=== PATIENT | male | born 1950 | race African-American/Black ===

== ENCOUNTER 2019-06-01 10:27 | Emergency (ER) | payer OTHER ==
[2019-06-01 10:34] VITALS: BP 156/86; PULSE 81; TEMP 97.7; BMI 27.5
--- NOTE | 2019-06-01 11:06 | PDOC ---
History of Present Illness - General Chief Complaint: Respiratory Stated Complaint: COUGH,CONGESTION,LIGHTHEADEDNESS Time Seen by Provider: 06/01/19 10:33 History Source: Patient Exam Limitations: No Limitations - History of Present Illness Initial Comments: 06/01/19 10:41 HPI 69 YOM with h/o arthritis presenting with persistent cough and congestion x 2 weeks. he was initially seen at urgent care for cough/congestion about 1 week ago, dx'd with flu like illness and rx'd tamiflu/anti-nausea medication. he initially improved, and now over the past 1 week started having dry cough, dry mouth when he wakes up in the morning and nasal congestion. associated with dizziness, worse with moving about and removing his eyeglasses today. Denies fever, chills, chest pain, SOB, palpitation, dizziness, weakness, N, V, D , abdominal pain, bladder and bowel problems, focal weakness/paresthesias, leg swelling/pain, rash. No sick contacts. recently returned from visiting family over the frances holidays in [place]. tolerating oral and fluid intake. Allergies: None Past Medical History: arthritis PSH: cholecystectomy Social history: Lives with family. No tobacco, ETOH or drug use. Meds: none Review of systems Constitutional: no fevers or chills. No weakness HEENT: +nasal congestion. +dry mouth. +dizziness. no headache. No visual/ hearing disturbances. CVS: no cp or syncope. Resp: +SOB, +cough Gastrointestinal: no abdominal pain, nausea, vomiting, diarrhea. MUSCULOSKELETAL: No joint pain and swelling. No neck or back pain. SKIN: no redness or skin changes, no discharge, no rash. No wounds. Hematologic: no easy bruising/bleeding. NEUROLOGIC: No headache, LOC or altered mental status. No weakness, numbness or tingling. Psych: no anxiety or depression Allergic/Immunologic: no allergies All other systems reviewed and negative, or as documented in HPI. Physical exam General: Well appearing, awake and alert, NAD. HEENT: NCAT, PERRL, EOMI, clear conjunctiva, anicteric, moist mucus membranes, clear oropharynx, no oral lesions.. Neck: neck supple, FROM Resp: CTAB, normal and even respirations, no respiratory distress CVS: RRR, no murmurs, 2+ peripheral pulses throughout, no peripheral edema Abdomen: soft, NTND, no rebound or guarding. Back: nontender, normal inspection and ROM MSK: no edema, GOLDMAN x4, ROM intact. No clubbing or cyanosis. normal bulk and tone. Extremities: no calf tenderness Neuro: alert, oriented appropriately; no focal neurologic deficits Psych: Calm and cooperative Skin: warm and well perfused, cap refill <2 sec, normal color, no rash or skin discoloration. 06/01/19 11:22 06/01/19 11:23 06/01/19 11:35 06/01/19 11:49 Past History - Past Medical History Allergies/Adverse Reactions: Allergies Allergy/AdvReac Type Severity Reaction Status Date / Time No Known Allergies Allergy Verified 06/01/19 10:29 Home Medications: Ambulatory Orders NK [No Known Home Medication] 06/01/19 COPD: No Other medical history: pt denies - Surgical History Cholecystectomy: Yes (for gallstones x 1 ear ago) - Psycho Social/Smoking Cessation Hx Smoking History: Never smoked Hx Alcohol Use: No Drug/Substance Use Hx: No *Physical Exam - Vital Signs Last Vital Signs Temp Pulse Resp BP Pulse Ox 97.7 F 81 19 156/86 98 06/01/19 10:28 06/01/19 10:28 06/01/19 10:28 06/01/19 10:28 06/01/19 10:28 Heart Score/ECG Review #1 ECG reviewed & interpreted by me at: 11:35 General ECG Interpretation: Sinus Rhythm, Normal Rate, Normal Intervals 06/01/19 11:48 EKG normal sinus rhythm 69 bpm, no interval abnormalities, narrow QRS, ST and T wave segments and morphology normal. ED Treatment Course - RADIOLOGY Radiology Studies Ordered: Category Date Time Status CHEST PA & LAT [RAD] Stat Radiology 06/01/19 10:34 Ordered Radiograph Interpretation: 06/01/19 11:07 Interpreted by ED Physician: CXR (2 view): no acute abnormality: no infiltrates , bones appear intact and structures normal alignment, cardiac silhouette within normal limits. no free air under diaphragm, no pneumothorax. Medical Decision Making - Medical Decision Making 06/01/19 11:46 Vital Signs Temp Pulse Resp BP Pulse Ox 97.7 F 81 19 156/86 98 06/01/19 10:28 06/01/19 10:28 06/01/19 10:28 06/01/19 10:28 06/01/19 10:28 Vital signs reviewed within normal limits, no fever, no tachycardia, normal respirations and breathing comfortably. Differential diagnosis includes pneumonia, upper respiratory infection, influenza, viral syndrome, bronchitis. Chest x-ray is clear no evidence of pneumonia or edema, normal cardiac silhouette, no widening of the mediastinum. Lungs are clear without edema or infiltrate. EKG is sinus rhythm at 69 bpm, no ST elevations or depressions. Patient without any chest pain or shortness of breath, no syncope. No significant comorbidities are noted or risk factors/features to suggest cardiac/ systemic etiology. Patient most recently had flulike illness and was prescribed what patient believes to be Tamiflu and not quite done with the medications yet. tolerating fluid and oral intake. ambulatory without difficulities. He most likely has sequelae of bronchitis and post viral syndrome/upper respiratory infection, supportive care measures, hydration, OTC analgesia and cough drops, honey, lemon/jeane tea. Pt to be discharged in stable condition. Patient and family made aware of clinical impression, treatment recommendations and disposition plan, return precautions discussed (including but not limited to new or persistent/worsening symptoms, pain, fevers, or signs of infection, chest pain, respiratory distress , inability to tolerate oral intake, dehydration, syncope, or neurologic changes ). Follow up with PMD as recommended, follow up information provided, take medications as instructed for duration of time. continue with supportive care, avoid triggers and precipitants. All questions answered to patient's satisfaction and expressed understanding and comfort with this. At the time of discharge, the patient is alert, clinically improved, tolerating po and verbalizes understanding of instructions, satisfied with the care received and felt comfortable with the plan. Patient does not suffer from an acute life- threatening medical condition at this time and is safe for outpatient follow- up. 06/01/19 11:49 06/01/19 11:50 Discharge - Discharge Information Problems reviewed: Yes Clinical Impression/Diagnosis: URI (upper respiratory infection) Condition: Stable Disposition: HOME - Admission No - Follow up/Referral Referrals: [facility] [place] [facility] [Provider Group] [facility] [Provider Group] - Patient Discharge Instructions Patient Printed Discharge Instructions: DI for Acute Bronchitis, DI for Viral Upper Respiratory Infection -- Adult Additional Instructions: your flu test was negative your chest x ray is also negative for pneumonia this is most likely a viral illness/bronchitis and can take several weeks to resolve your EKG was also normal salt water gargles, 1-2 spoonful of honey and warm lemon tea is appropriate as well for soothing qualities for sore throat/cough. minimize spread of infection given contagious nature, and cover your mouth and wash your hands adequately with soap and water. Stay well hydrated and rest. Cool air - walk around outdoors in the evening. May also try hot shower steam. This can alleviate the congestion and cough. You can also use Riccola - dual action with lemon/honey to soothe your throat and cough. Nutrition is important - eat small frequent meals. Get lots of rest and drink fluids. Call your Primary Care Doctor upon arrival home from the hospital and make a follow-up appointment in 2-3 days. If your cough worsens, you develop a fever greater than 100.4, you develop shaking chills, a fast heartbeat, trouble breathing and/or feel you are are breathing much faster than usual, call your Primary Care Doctor or return to the ED. Return precautions include respiratory distress, difficulty breathing, cyanosis, chest pain, lethargy, confusion, dehydration, high fevers or pain. Make sure you wash your hands frequently. - Post Discharge Activity
--- NOTE | 2019-06-02 12:45 | EKG ---
Test Reason : Blood Pressure : / mmHG Vent. Rate : 069 BPM Atrial Rate : 069 BPM P-R Int : 154 ms QRS Dur : 090 ms QT Int : 392 ms P-R-T Axes : 065 027 045 degrees QTc Int : 420 ms SINUS RHYTHM WITH PREMATURE ATRIAL COMPLEXES OTHERWISE NORMAL ECG WHEN COMPARED WITH ECG OF 18-MAR-2005 14:43, NO SIGNIFICANT CHANGE WAS FOUND Confirmed by MD Mark Daniel ([id number]) on 06/02/2019 12:44:46 PM Referred By: Confirmed By:Adarsh Mark MD
== END 2019-06-01 12:25 | disposition home or self-care (01) ==
LOC: FER 10:27
DX: J06.9 Acute upper respiratory infection, unspecified (principal)
CPT/HCPCS: 71046-TC-FY; 87804; 93005; 99282-25

== ENCOUNTER 2020-02-09 07:30 | Emergency (ER) | payer OTHER ==
[2020-02-09 07:34] VITALS: BP 133/71; PULSE 88; TEMP 97.7; BMI 29.5
--- OUTSIDE RECORDS SUMMARY | 2020-02-09 07:38 | XMS ---
:1950 Author Organization [facility] Support Name Relationship Address Phone RE Unavailable Unavailable [place] [address] UE Unavailable Unavailable Unavailable HERMINIO LYNN SISTER [address] [place] [address] Re-disclosure Warning The records that you are about to access may contain information from federally- assisted alcohol or drug abuse programs. If such information is present, then the following federally mandated warning applies: This information has been disclosed to you from records protected by federal confidentiality rules (42 CFR part 2). The federal rules prohibit you from making any further disclosure of this information unless further disclosure is expressly permitted by the written consent of the person to whom it pertains or as otherwise permitted by 42 CFR part 2. A general authorization for the release of medical or other information is NOT sufficient for this purpose. The Federal rules restrict any use of the information to criminally investigate or prosecute any alcohol or drug abuse patient.The records that you are about to access may contain highly sensitive health information, the redisclosure of which is protected by Article 27-F of the [facility] Public Health law. If you continue you may haveaccess to information: Regarding HIV / AIDS; Provided by facilities licensed or operated by the [facility] Office of Mental Health; or Provided by the [facility] Office for People With Developmental Disabilities. If such information is present, then the following [facility] mandated warning applies: This information has been disclosed to you from confidential records which are protected by state law. State law prohibits you from making any further disclosure of this information without the specific written consent of the person to whom it pertains, or as otherwise permitted by law. Any unauthorized further disclosure in violation of state law may result in a fine or prison sentence or both. A general authorization for the release of medical or other information is NOT sufficient authorization for further disclosure. Insurance Providers Payer name Policy type Policy ID Covered Covered republican's Policy P justyna / Coverage republican ID relationship to [employer] ormation type [employer] MEDICARE [id number] MEDICARE [id number] SELF PAY SP INSURANCE
--- NOTE | 2020-02-09 07:39 | PDOC ---
History of Present Illness - General Chief Complaint: Pain, Acute Stated Complaint: left shoulder pain Time Seen by Provider: 02/09/20 07:38 History Source: Patient Exam Limitations: No Limitations - History of Present Illness Initial Comments: 69 yo M no stated PMH presents with L shoulder pain since last night. He states he had a mechanical fall onto outstretched hand when he missed a step. C/o pain to L shoulder, worse with abduction, better with rest. Denies LOC, no head injury. Denies any weakness, numbness. He took tylenol prior to arrival. Past History - Medical History Allergies/Adverse Reactions: Allergies Allergy/AdvReac Type Severity Reaction Status Date / Time No Known Allergies Allergy Verified 02/09/20 07:31 Home Medications: Ambulatory Orders NK [No Known Home Medication] 06/01/19 COPD: No - Surgical History Cholecystectomy: Yes (for gallstones x 1 ear ago) - Psycho-Social/Smoking History Smoking History: Never smoked - Substance Abuse Hx (Audit-C & DAST Scrn) How often the patient has a drink containing alcohol: Monthly or less Number of drinks the patient has on a typical day: 1 or 2 How often the patient has six or more drinks on one occasion: Never Score: In Men: 4 or > Positive; In Women: 3 or > Positive: 1 Screen Result (Pos requires Nsg. Audit-10AR): Negative In the last yr the pt used illegal drug/Rx for NonMed reason: Yes Score: Yes response is considered Positive: 1 Screen Result (Positive result requires Nsg. DAST-10): Positive Review of Systems - Review of Systems Able to Perform ROS?: Yes Comments:: GENERAL/CONSTITUTIONAL: No fever or chills. No weakness. HEAD, EYES, EARS, NOSE AND THROAT: No change in vision. No ear pain or discharge. No sore throat. MUSCULOSKELETAL: +L shoulder pain. No neck or back pain. SKIN: No rash. NEUROLOGIC: No headache, vertigo, loss of consciousness, or change in stren gth/sensation. ENDOCRINE: No increased thirst. No abnormal weight change. HEMATOLOGIC/LYMPHATIC: No anemia, easy bleeding, or history of blood clots. ALLERGIC/IMMUNOLOGIC: No hives or skin allergy. *Physical Exam - Vital Signs Last Vital Signs Temp Pulse Resp BP Pulse Ox 97.7 F 88 16 133/71 100 02/09/20 07:30 02/09/20 07:30 02/09/20 07:30 02/09/20 07:30 02/09/20 07:30 - Physical Exam GENERAL: Awake, alert, and fully oriented, in no acute distress HEAD: No signs of trauma EYES: PERRLA, EOMI, sclera anicteric, conjunctiva clear ENT: Auricles normal inspection, hearing grossly normal, nares patent, oropharynx clear without exudates. Moist mucosa NECK: Normal ROM, supple, no lymphadenopathy, JVD, or masses EXTREMITIES: L shoulder with dec ROM due to pain. +Tenderness to the deltoid muscles. +Tenderness to proximal humerus. No elbow tenderness, no radial/ulnar tenderness, no snuffbox tenderness, no clavicular tenderness. Remainder of extremities with normal range of motion, no edema. No clubbing or cyanosis. No cords, erythema, or tenderness NEUROLOGICAL: Cranial nerves II through XII grossly intact. Normal speech, normal gait. Motor and sensation intact SKIN: Warm, dry, normal turgor, no rashes or lesions noted. Discharge - Discharge Information Problems reviewed: Yes Clinical Impression/Diagnosis: Shoulder sprain Qualifiers: Encounter type: initial encounter Shoulder sprain type: unspecified sprain Laterality: left Qualified Code(s): S43.402A - Unspecified sprain of left shoulder joint, initial encounter Condition: Stable Disposition: HOME - Follow up/Referral Referrals: Gautam Caro MD [Staff Physician] - - Patient Discharge Instructions Patient Printed Discharge Instructions: DI for Shoulder Sprain - Post Discharge Activity
[2020-02-09] MEDS ORDERED: IBUPROFEN 400 MG TABLET (FP) PO ONE ×2 (08:31→08:32)
== END 2020-02-09 08:34 | disposition home or self-care (01) ==
LOC: FER 07:30
DX: S43.402A Unspecified sprain of left shoulder joint, initial encounter (principal)
CPT/HCPCS: 73030-TC-LT-FY; 99283-25

== ENCOUNTER 2021-07-03 08:14 | Day surgery (SDC) | payer OTHER ==
[2021-05-23 10:59] VITALS: BMI 30.8
[2021-07-03] MEDS ORDERED: CIPROFLOXACIN 0.3% EYE DROPS 5 ML BOTTLE OD ONE ×3 (08:45→08:55)
[2021-07-03] MEDS ORDERED: CYCLOPENTOLATE 2% OPHTH SOLN 2 ML BOTTLE OD ONE ×3 (08:45→08:55)
[2021-07-03] MEDS ORDERED: TROPICAMIDE 1% OPHTH SOLN 15 ML BOTTLE OD ONE ×3 (08:45→08:55)
[2021-07-03] MEDS ORDERED: TETRACAINE 0.5% HCL 0.6ML DROPPER.BOTTLE OD ONE (08:45)
[2021-07-03] MEDS ORDERED: PHENYLEPHRINE 2.5% OPTHALMIC DROP BOTTLE OD ONE ×3 (08:45→08:55)
[2021-07-03] MEDS ORDERED: CYCLOPENTOLATE 2% OPHTH SOLN 2 ML BOTTLE ONE (08:49)
[2021-07-03] MEDS ORDERED: TETRACAINE 0.5% OPHTH SOLN 2 ML BOTTLE ONE (08:49)
[2021-07-03] MEDS ORDERED: CIPROFLOXACIN 0.3% EYE DROPS 5 ML BOTTLE ONE (08:50)
[2021-07-03] MEDS ORDERED: PHENYLEPHRINE 2.5% OPHTH SOLN 15 ML BOTTLE ONE (08:50)
[2021-07-03] MEDS ORDERED: TROPICAMIDE 1% OPHTH SOLN 15 ML BOTTLE ONE (08:50)
[2021-07-03] MEDS ORDERED: NEO/POLYMYX B SULF/DEXAMETH OPHTHALMIC 5ML BOTTLE ONE (09:16)
[2021-07-03] MEDS ORDERED: POVIDONE-IODINE 5% OPHTHALMIC PREP 30 ML SOLUTION ONE (09:16)
[2021-07-03] MEDS ORDERED: EPI-SHUGARCAINE (EPINEPHRINE 0.025% & LIDOCAINE-PF 0.75%) 4ML ONE (09:16)
[2021-07-03] MEDS ORDERED: MIDAZOLAM HCL 2 MG/2 ML SINGLE DOSE VIAL ONE (10:47)
[2021-07-03 11:32] VITALS: TEMP 97.7
[2021-07-03 11:49] VITALS: BP 115/73; PULSE 79
== END 2021-07-03 11:59 | disposition home or self-care (01) ==
LOC: FASU 08:14
PROVIDERS: ATTEND Ophthalmology
PROC: 08RJ3JZ Replacement of Right Lens with Synthetic Substitute, Percutaneous Approach (ICD-10-PCS; principal; 2021-07-03 10:52)
DX: H25.11 Age-related nuclear cataract, right eye (principal)

== ENCOUNTER 2023-01-14 13:13 | Emergency (ER) | payer OTHER ==
[2023-01-14 13:47] LABS: HEMATOCRIT 38.9 % (35.4-49); HEMOGLOBIN 13.1 G/dL (11.7-16.9); MCH 31.5 pg (25.7-33.7); MCHC 33.8 g/dl (32.0-35.9); MEAN CELL VOLUME 93.2 fl (80-96); MEAN PLT VOLUME 7.7 fl (7.5-11.1); RBC 4.17 10^6/uL (4.00-5.60); RDW 13.5 % (11.9-15.9); WHITE BLOOD COUNT 5.1 10^3/uL (4.0-10.8)
[2023-01-14 13:49] VITALS: BP 128/73; PULSE 73; RESP 18; TEMP 98.1; BMI 32.1
[2023-01-14 14:05] LABS: ALBUMIN 3.8 g/dl (3.4-5.0); BLOOD UREA NITROGEN 13.4 mg/dl (7-18); CALCIUM 9.1 mg/dl (8.5-10.1); CREATININE 0.7 mg/dl (0.6-1.3); MAGNESIUM 1.5 mg/dL (1.8-2.4); PHOSPHOROUS 3.01 (2.5-4.9); POTASSIUM 3.6 mmol/L (3.5-5.1); SGOT/AST 12.5 U/L (15-37); SGPT/ALT 8.1 U/L (7-52); TOT PROT 6.4 g/dl (6.4-8.2)
[2023-01-14] MEDS ORDERED: MAGNESIUM SULF 50% (8.12 MEQ/2 ML-1 GM VIAL) IVPB ONE (14:41)
[2023-01-14] MEDS ORDERED: MAGNESIUM SULFATE IN WATER 2 GM/50 ML IVPB IVPB ONE (14:46)
[2023-01-14 15:02] LABS: BILIRUBIN,TOTAL 0.8 mg/dL (0.2-1)
== END 2023-01-14 16:01 | disposition home or self-care (01) ==
LOC: FER 13:13
PROC: 3E033GC Introduction of Other Therapeutic Substance into Peripheral Vein, Percutaneous Approach (ICD-10-PCS; principal; 2023-01-14)
DX: H53.8 Other visual disturbances (principal); R41.0 Disorientation, unspecified
CPT/HCPCS: 36415; 70450-TC; 80053; 83735; 84100; 84484; 85027; 93005; 96374; 99285-25

== ENCOUNTER 2023-07-28 11:39 | Emergency (ER) | payer OTHER ==
[2023-07-28 12:10] VITALS: BP 122/72; PULSE 86; RESP 18; TEMP 97.8; BMI 33.0
[2023-07-28 12:35] LABS: HEMATOCRIT 39.5 % (35.4-49); HEMOGLOBIN 13.3 G/dL (11.7-16.9); MCHC 33.7 g/dl (32.0-35.9); MEAN PLT VOLUME 8.7 fl (7.5-11.1); PLATELET COUNT 158.7 10^3/uL (134-434); RBC 4.29 10^6/uL (4.00-5.60); RDW 14.3 % (11.9-15.9)
[2023-07-28 12:55] LABS: PLATELET ESTIMATE ADEQUATE
[2023-07-28 12:58] LABS: BILIRUBIN,TOTAL 0.5 mg/dl (0.2-1); CALCIUM 9.3 mg/dl (8.5-10.1); CREATININE 0.7 mg/dl (0.6-1.3); POTASSIUM 4.5 mmol/L (3.5-5.1); TOT PROT 6.6 g/dl (6.4-8.2)
[2023-07-28] MEDS ORDERED: IBUPROFEN 400 MG TABLET (FP) PO ONE (15:16)
[2023-07-28] MEDS: IBUPROFEN 400 MG TABLET (FP) PO ONE (15:23)
== END 2023-07-28 15:25 | disposition home or self-care (01) ==
LOC: FER 11:39
DX: M79.641 Pain in right hand (principal); R22.31 Localized swelling, mass and lump, right upper limb
CPT/HCPCS: 36415; 73130-TC-RT-FY; 80053; 85025; 93971; 99285-25

== ENCOUNTER 2025-02-03 06:37 | Emergency (ER) | payer OTHER ==
[2025-02-03 06:46] VITALS: BP 161/69; PULSE 76; RESP 18; TEMP 97.3; BMI 31.1
[2025-02-03] MEDS: ACETAMINOPHEN 500 MG TABLET (FP) PO ONE (08:40)
[2025-02-03] MEDS: KETOROLAC TROMETHAMINE 30 MG/1 ML VIAL IM ONE (08:40)
[2025-02-03] MEDS ORDERED: KETOROLAC TROMETHAMINE 30 MG/1 ML VIAL ONE (08:48)
[2025-02-03] MEDS ORDERED: ACETAMINOPHEN 325 MG TABLET (FP) ONE (08:48)
== END 2025-02-03 09:19 | disposition home or self-care (01) ==
LOC: FER 06:37
PROC: 3E0233Z Introduction of Anti-inflammatory into Muscle, Percutaneous Approach (ICD-10-PCS; principal; 2025-02-03)
DX: M25.562 Pain in left knee (principal); V03.10XA Pedestrian on foot injured in collision with car, pick-up truck or van in traffic accident, initial encounter; Y93.01 Activity, walking, marching and hiking; Y92.481 Parking lot as the place of occurrence of the external cause
CPT/HCPCS: 73502-TC-LT-FY; 73562-TC-LT-FY; 99284-25